=== PATIENT | female | born 1990 | race African-American/Black ===

== ENCOUNTER 2020-12-27 11:12 | Emergency (ER) | payer OTHER, SELFPAY ==
--- NOTE | 2020-12-27 11:17 | ED.CHESTPAIN ---
HPI - Chest Pain General Chief Complaint: Chest Pain Stated Complaint: chest pain/johnson Time Seen by Provider: 12/27/20 11:17 Source: patient and RN notes reviewed History of Present Illness HPI narrative: Patient is a 30-year-old female who presents the urgent care with complaints of chest heaviness and intermittent headaches. Patient states that this started last week and it resolved after she was able to regroup and decrease her stress and anxiety. 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 States that her friend that came with her from [place] is leaving to go to [place] and she feels that she is going to be alone . Patient states that she knows her son's are related to stress and anxiety but she wanted to make sure her . Patient states that she has seen Dr. Serrano and is currently not on any medication for stress or anxiety. Patient is tearful but otherwise no other acute distress noted. Patient denies of any cardiac history. Denies of shortness of breath. No other complaints. No acute distress noted. Patient aware of the plan of care. Some parts of this dictation were generated by voice recognition software and may contain typographical and/or grammatical inaccuracies. Related Data Home Medications Medication Instructions Recorded Confirmed albuterol 12/27/20 Allergies Allergy/AdvReac Type Severity Reaction Status Date / Time No Known Allergies Allergy Verified 12/27/20 11:23 Review of Systems Review of Systems: CONSTITUTIONAL: Denies fever, chills, or sweats. EYES: Denies visual changes, redness, or discharge. ENT: Denies rhinorrhea, congestion, sore throat, or otalgia. CARDIOVASCULAR: Reports of chest discomfort RESPIRATORY: Denies cough or dyspnea. GASTROINTESTINAL: Denies abdominal pain, nausea, vomiting, or diarrhea. GENITOURINARY: Denies dysuria or hematuria. SKIN: Denies rash or itching. MUSCULOSKELETAL: Denies back pain, joint pain, or myalgia. NEUROLOGIC: Reports of intermittent headaches PSYCHIATRIC: Reports of anxiety and stress All other systems reviewed are negative, except as documented in HPI. PMFSH Comments At the time of my signature, I reviewed and agree with the nursing past medical, surgical, social, and family history. There is no relevant family history pertinent to the patient complaint. Exam Narrative: GENERAL: This is a well-nourished, well-developed patient. Tearful HEAD: normocephalic, atraumatic. EYES: PERRL. Sclera clear/white. Vision is grossly intact. EARS: External ears normal NOSE: External nose normal with no obvious nasal discharge, nares without redness, no rhinorrhea. THROAT: Mucous membranes moist NECK: Neck supple CARDIOVASCULAR: Regular rate and rhythm without murmurs, gallops, or rubs. RESPIRATORY: Clear to auscultation. Breath sounds equal bilaterally. No wheezes, rales, or rhonchi. SKIN: warm, intact with no suspicious lesions or rash, good texture and turgor. NEURO: awake, alert, and oriented to person, place and time. There were no obvious focal neurologic abnormalities. EXTREMITIES: No clubbing, cyanosis, or edema. Course Vital Signs Vital signs: Vital Signs Temperature 97.4 F L 12/27/20 11:21 Pulse Rate 79 12/27/20 11:21 Respiratory Rate 20 12/27/20 11:21 Blood Pressure 146/96 H 12/27/20 11:21 Pulse Oximetry 100 12/27/20 11:21 Temperature 97.4 F L 12/27/20 11:21 Pulse Rate 79 12/27/20 11:21 Respiratory Rate 20 12/27/20 11:21 Blood Pressure 146/96 H 12/27/20 11:21 Pulse Oximetry 100 12/27/20 11:21 Reviewed-patient is informed that they may have pre-hypertension or hypertension based on a blood pressure reading in the department. I recommend the patient call the primary care provider listed on their discharge instructions or a physician of their choice this week to arrange follow-up for further evaluation of possible pre-hypertension or hypertension. MDM - Chest Pain MDM Narrati
[2020-12-27 11:21] VITALS: BP 146/96; PULSE 79; RESP 20; TEMP 36.3; O2SAT 100
--- NOTE | 2020-12-27 11:25 | ECG_ITS ---
Measurements Intervals [place] Rate: 71 P: 18 VT: 149 QRS: 37 QRSD: 89 T: 32 QT: 373 QTc: 408 Interpretive Statements SINUS RHYTHM WITH SINUS ARRHYTHMIA BASELINE ARTIFACT- II, III, AVL, AVF NORMAL ECG Electronically Signed On 12-27-2020 12:04:51 CDT by Moses Mix D.O.
== END 2020-12-27 11:56 | disposition home or self-care (01) ==
PROVIDERS: Emergency Provider Nurse Practitioner Family; PCP Emergency Medicine
DX: F41.9 Anxiety disorder, unspecified (principal)
CPT/HCPCS: 93005; 99213; G0463

== ENCOUNTER 2021-07-06 13:09 | Emergency (ER) | payer OTHER, SELFPAY ==
[2021-07-06 13:16] VITALS: BP 147/77; PULSE 98; RESP 20; TEMP 36.4; O2SAT 100
--- NOTE | 2021-07-06 13:35 | ED.URI ---
HPI - URI/Sore Throat General Chief Complaint: Upper Respiratory Infection Stated Complaint: Sore throat, eyes burning Time Seen by Provider: 07/06/21 13:36 Source: patient and RN notes reviewed Mode of arrival: ambulatory Limitations: no limitations History of Present Illness HPI Narrative: 31-year-old female resents with concern for 5-day history of headache, nasal congestion, sinus pressure, sore throat, shortness of breath when she climbs stairs. Reports light-sensitive you have headache. Reports she has been taking DayQuil and allergy medicine without relief. MD elicited complaint: sore throat, nasal congestion and other (Headache) Related Data Home Medications Medication Instructions Recorded Confirmed albuterol mcg INHALATION 07/06/21 Allergies Allergy/AdvReac Type Severity Reaction Status Date / Time No Known Allergies Allergy Verified 07/06/21 13:17 Review of Systems Review of Systems: CONSTITUTIONAL: Reports malaise. Denies chills, sweats, or fever. EYES: Denies visual changes, redness, or discharge. ENT: Reports rhinorrhea, congestion, sinus pain, otalgia and sore throat. CARDIOVASCULAR: Denies chest pain, palpitations, or edema. RESPIRATORY: Reports cough. Reports exertional dyspnea. GASTROINTESTINAL: Denies abdominal pain, nausea, vomiting, diarrhea SKIN: Denies rash or itching. MUSCULOSKELETAL: Denies myalgia. NEUROLOGIC: Reports headache with light sensitivity. All systems reviewed & are unremarkable except as noted in HPI and below PMFSH Comments At time of signature, agree with nursing past medical, surgical, social and family history. There is no relevant family history pertinent to the presenting complaint Exam Narrative: GENERAL: Well-appearing, well-nourished, and in no acute distress. HEAD: Normocephalic EYES: PERRLA, conjunctivae clear ENT: Nares clear, clear discharge. Mucous membranes moist. TM pearly roberto with dull light reflex bilaterally; no tragal tenderness. Oropharynx not erythematous without lesions. Tonsils not enlarged and without exudate, no drooling, no hoarseness, no trismus, uvula midline. NECK: Supple. No lymphadenopathy CHEST: Clear to auscultation, breath sounds equal. No wheezing, rhonchi, rales, or stridor. No respiratory distress, speaks in full sentences. HEART: Regular rate and rhythm. No murmur heard. SKIN: Warm, dry, no rash. NEURO: Alert and oriented x3. PSYCH: Normal mood and affect Course Course Emergency Course: Patient is aware of diagnosis, understands and agrees to treatment plan. Anticipatory guidance given. Patient agrees to follow-up as directed and is aware of reasons to seek care at the emergency department. Portions of this record may have been created with voice recognition software Level of Care: Express Care Visit Vital Signs Vital signs: Vital Signs Temperature 97.6 F 07/06/21 13:16 Pulse Rate 98 07/06/21 13:16 Respiratory Rate 20 07/06/21 13:16 Blood Pressure 147/77 H 07/06/21 13:16 Pulse Oximetry 100 07/06/21 13:16 Temperature 97.6 F 07/06/21 13:16 Pulse Rate 98 07/06/21 13:16 Respiratory Rate 20 07/06/21 13:16 Blood Pressure 147/77 H 07/06/21 13:16 Pulse Oximetry 100 07/06/21 13:16 Reviewed. MDM - URI/Sore Throat MDM Narrative Medical decision making narrative: Differential diagnosis considered: Sanchez virus, strep pharyngitis, allergic rhinitis, upper respiratory tract infection, sinusitis, rhinosinusitis, nasopharyngitis. viral pharyngitis, otitis media, otitis externa, pneumonia, bronchitis, viral cough syndrome, viral syndrome, and influenza. Exam findings show no acute concerns or changes; patient is non-toxic appearing and is in no distress. Patient is appropriate for outpatient treatment and follow-up. Lab Data Attestation: I reviewed the patient's lab results. Critical Care Time Critical Care Time Critical Care Time: No Discharge Plan Discharge Clinical Impression: Sinobronchitis
== END 2021-07-06 14:22 | disposition home or self-care (01) ==
PROVIDERS: Emergency Provider Nurse Practitioner; PCP Emergency Medicine
DX: J32.9 Chronic sinusitis, unspecified (principal); J40 Bronchitis, not specified as acute or chronic; Z20.822 Contact with and (suspected) exposure to COVID-19; J45.909 Unspecified asthma, uncomplicated
CPT/HCPCS: 87081; 87426; 87804; 87880; 99213; C9803; G0463

== ENCOUNTER 2021-10-27 16:04 | Emergency (ER) | payer OTHER, SELFPAY ==
--- NOTE | ~2021-10-27 | CT_ITS ---
EXAMINATION: CT abdomen pelvis w con DATE: 10/27/2021 19:08 INDICATION: Abdominal distention, bloating and intermittent constipation. Upper abdominal pain. TECHNIQUE: Computed tomography (CT) of the abdomen and pelvis was performed with 100 cc Omnipaque 300 intravenous contrast. The dose-length product was 1272.42 mGy-cm. Automated exposure control and ite rative reconstruction technique were employed. COMPARISON: None. FINDINGS: Lung bases unremarkable. Heart size normal. No significant pleural or pericardial effusion. No significant vascular abnormality. No lymphadenopathy. Nonobstructive bowel pattern. No free air o r free fluid. The liver, spleen, pancreas, adrenal glands and kidneys are unremarkable. No hydronephrosis. No abnor mal pelvic masses or fluid collections. No acute osseous abnormality. IMPRESSION: 1. No acute abdominal abnormality. Reviewed, dictated and finalized at location A.
[2021-10-27 16:43] VITALS: BP 136/75; PULSE 88; RESP 18; TEMP 36.6; O2SAT 100
[2021-10-27 16:57] LABS: Basophils Percent Auto 0.6 % (0.2-1.2); Eosinophils Percent Auto 0.4 % (0-4.4); Hematocrit 36.3 % (37.0-47.0); Hemoglobin 11.8 g/dL (12.0-15.0); Immature Granulocyte Absolute 0.02 K/mm3 (0.00-0.031); Immature Granulocyte Percent A 0.3 % (0-0.5); Lymphocytes Absolute Auto 2.27 K/mm3 (0.9-3.2); Lymphocytes Percent Auto 32.1 % (18.3-44.2); Mean Corpuscular HGB Conc 32.5 g/dl (32-36); Mean Corpuscular Hemoglobin 27.9 pg (26-34); Mean Corpuscular Volume 85.8 fl (80-100); Mean Platelet Volume 9.5 fl (7.4-10.4); Monocytes Absolute Auto 0.4 K/mm3 (0.1-0.6); Monocytes Percent Auto 6.1 % (2.6-8.5); Neutrophils Absolute Auto 4.3 K/mm3 (1.3-6.7); Neutrophils Percent Auto 60.5 % (45.5-73.1); Platelet Count Result 391 k/mm3 (150-375); Red Blood Count 4.23 M/mm3 (4.2-5.4); Red Cell Distribution Width 13.9 % (11.5-14.5); White Blood Count 7.1 K/mm3 (4.5-10.0)
[2021-10-27 17:07] LABS: Alanine Aminotransferase 23 U/L (6-35); Alkaline Phosphatase 83 U/L (38-126); Anion Gap 3 mmol/L (8-16); Aspartate Amino Transferase 28 U/L (14-36); Bilirubin,Total 0.2 mg/dL (0.2-1.3); Blood Urea Nitrogen 13 mg/dL (7-17); Calcium 8.9 mg/dL (8.4-10.2); Carbon Dioxide 28 mmol/L (22-30); Chloride 108 mmol/L (98-107); Estimated CRCL calculation 87 ml/min; Estimated Glomerular Filt Rate > 60; Glucose 93 mg/dL (65-110); Lipase 113 U/L (23-300); Potassium 3.9 mmol/L (3.4-5.0); Sodium 139 mmol/L (137-145)
[2021-10-27 17:11] LABS: Appearance Urine Clear (Clear); Bilirubin Urine Negative (Negative); Blood Urine Negative (Negative); Color Urine Yellow (Yellow); Glucose Urine UA Negative (Negative); Ketones Urine Negative (Negative); Leukocyte Esterase Ur Negative LEU/UL (Negative); Nitrate Urine Negative (Negative); Protein Urine Negative (Negative); Specific Grav Ur 1.015 (1.001-1.035); Urobilinogen Urine 0.2 mg/dL (<2.0); pH Urine 8.5 (5.0-9.0)
[2021-10-27 17:17] LABS: Add Urine Microscopic? NO
--- NOTE | 2021-10-27 17:46 | ED.GENADULT ---
HPI - General Adult General Chief complaint: Unspecified <TARYN Bhatia Last Filed: 10/28/21 02:25> Stated complaint: abd pain <TARYN Bhatia Last Filed: 10/28/21 02:25> Time Seen by Provider: 10/27/21 17:38 <TARYN Bhatia Last Filed: 10/28/21 02:25> History of Present Illness HPI narrative: Patient is a 31-year-old female here for evaluation of bloating over the past 8 days. Patient states that whenever she eats a meal, she feels incredibly bloated and uncomfortably full afterwards. This came on after she ate a salad 8 days ago, and is present after every meal. Has only been drinking broths and liquids x 2 days without relief. Additionally has tried Maalox without relief. Notes intermittent constipation over the past 8 days, she took magnesium citrate this morning and has had diarrhea ever since. No nausea or vomiting, fevers, dysuria, hematuria, urgency or frequency. She has had no abdominal surgeries. <TARYN Bhatia Last Filed: 10/28/21 02:25> Related Data Home medications: Home Medications Medication Instructions Recorded Confirmed albuterol 90 mcg/actuation aerosol 90 mcg inhalation PRN PRN Wheezing 07/06/21 07/06/21 inhaler <TARYN Bhatia Last Filed: 10/28/21 02:25> Allergies/adverse reactions: Allergies Allergy/AdvReac Type Severity Reaction Status Date / Time No Known Allergies Allergy Verified 10/27/21 17:11 <TARYN Bhatia Last Filed: 10/28/21 02:25> Review of Systems Review of Systems: Gen.: Denies fevers or chills Eyes: Denies eye pain or visual change ENT: Denies congestion Respiratory: Denies shortness of breath or cough CV: Denies chest pain or palpitations GI: Reports abdominal pain and bloating. : denies burning, urgency, frequency or hematuria Musculoskeletal: Denies back pain or muscle pain Neuro: Denies numbness, tingling, weakness or focal weakness Skin: Denies rash Except as documented, all other systems reviewed and negative <Jadyn Todd PA-C - Last Filed: 10/28/21 02:25> Exam Narrative: APPEARANCE: Well appearing, no pain in distress, well-nourished. Head: Normocephalic and atraumatic. EYES: PERRLA/EOMI, conjunctivae clear NOSE: No nasal drainage EARS: External ear normal in appearance THROAT: Oropharynx is clear. Mucous membranes are moist. NECK: Supple. No adenopathy, no masses. RESPIRATORY: Airway patent, respirations nonlabored. Clear to auscultation bilaterally, no rales, rhonchi, wheezing. CARDIOVASCULAR: Regular rate and rhythm without murmurs, rubs, or gallops. : No fecal impaction, good rectal tone. ABDOMINAL: Abdomen mildly distended, tender in epigastrium. No rebound tenderness or guarding. MUSCULOSKELETAL: Extremities are warm and well-perfused. Moves all extremities well. No edema. NEURO: Normal speech. No focal neurologic deficits. SKIN: Skin is warm and dry. No rashes. PSYCHIATRIC: Normal affect/mood. <Jadyn Todd PA-C - Last Filed: 10/28/21 02:25> Course [employer]PA[employer]/PA Physician Supervision I saw and evaluated the patient. Discussed the patient and plan with XAVI Todd and agree with the findings and plan as documented. <Willian Rdz MD - Last Filed: 10/28/21 23:56> Vital Signs Vital signs: Vital Signs Temperature 97.8 F 10/27/21 16:43 Pulse Rate 88 10/27/21 16:43 Respiratory Rate 18 10/27/21 16:43 Blood Pressure 136/75 10/27/21 16:43 Pulse Oximetry 100 10/27/21 16:43 Temperature 97.8 F 10/27/21 16:43 Pulse Rate 87 10/27/21 20:08 Respiratory Rate 18 10/27/21 20:08 Blood Pressure 136/75 10/27/21 16:43 Pulse Oximetry 98 10/27/21 20:08 <Jadyn Todd PA-C - Last Filed: 10/28/21 02:25> Vital Signs Temperature 97.8 F 10/27/21 16:43 Pulse Rate 88 10/27/21 16:43 Respiratory Rate 18 10/27/21 16:43 Blood Pressure 136/75
[2021-10-27 20:08] VITALS: PULSE 87; RESP 18; O2SAT 98
== END 2021-10-27 20:00 | disposition home or self-care (01) ==
PROVIDERS: Emergency Medicine; Emergency Provider Preventive Medicine Aerospace Medicine; PCP Emergency Medicine
DX: R14.0 Abdominal distension (gaseous) (principal)
CPT/HCPCS: 36415; 74177; 80053; 81003; 81025; 83690; 85025; 99284; Q9967

== ENCOUNTER 2021-11-16 07:34 | Outpatient (CLI) | payer OTHER, SELFPAY ==
--- NOTE | ~2021-11-16 | XR_ITS ---
EXAMINATION: XR UGIAC wo kub DATE: 11/16/2021 08:30 INDICATION: Abdominal pain and bloating. TECHNIQUE: The patient drank thick barium, gas-producing crystals, and thin barium. Fluoroscopy of th e esophagus, stomach, and proximal small bowel was performed. Fluoroscopy exposure time was 0.7 minut es. The total number of images was 265. Total dose-area product was 3.853 Gy-cm^2. COMPARISON: CT abdomen and pelvis 10/27/21 FINDINGS: There is no mass or stricture of the esophagus. Esophageal motility is normal. There is no hiatal hernia. The stomach and proximal small bowel show normal folding patterns. IMPRESSION: 1. Normal upper gastrointestinal series. Reviewed, dictated and finalized at location A.
--- NOTE | ~2021-11-16 | US_ITS ---
US abdomen limited INDICATION: Abdomen pain PROCEDURE: Realtime right upper abdominal ultrasound. COMPARISON: No prior studies for comparison. FINDINGS: The pancreas is normal without focal mass or pancreatic ductal dilation. Liver echotexture is slightly increased, consistent with fatty infiltration. There is normal directional flow in the portal vein. The gallbladder is normal without stones, gallbladder wall thickening or pericholecystic fluid. Comm on bile duct measures 5 mm. No sonographic Montez's sign. IMPRESSION: 1: Hepatic steatosis. Reviewed, dictated and finalized at location A. IMPRESSION: 1: Hepatic steatosis.
== END 2021-11-16 07:35 | disposition home or self-care (01) ==
PROVIDERS: PCP Emergency Medicine; Visit Provider Emergency Medicine
DX: R14.0 Abdominal distension (gaseous) (principal); R10.9 Unspecified abdominal pain; K76.0 Fatty (change of) liver, not elsewhere classified
CPT/HCPCS: 74246; 76705

== ENCOUNTER 2022-05-29 15:06 | Emergency (ER) | payer OTHER, SELFPAY ==
[2022-05-29 15:16] VITALS: BP 152/83; PULSE 76; RESP 16; TEMP 36.8; O2SAT 100
[2022-05-29 15:18] VITALS: BP 152/83; PULSE 76; RESP 16; TEMP 36.8; O2SAT 100
[2022-05-29] MEDS: methylPREDNISolone SOD SUCC 125 MG VIAL IM (15:38)
[2022-05-29] MEDS: FAMOTIDINE 20 MG TABLET PO (15:58)
--- NOTE | 2022-05-29 15:59 | ED.GENADULT ---
HPI - General Adult General Chief complaint: Allergic Reaction Stated complaint: ALLERGIC REACTION Source: patient Mode of arrival: ambulatory Limitations: no limitations History of Present Illness HPI narrative: Patient presents for evaluation of which she believes to be an allergic reaction. She had a case she wanted [employer] last night and had dinner. She woke from sleep around 0500 this morning with some nausea. Around 1100 this morning she took some baking soda for her symptoms. Approximately half an hour later she ate some salmon and vegetables. Around 1300 she developed pruritus that started in her hands and then migrated to most of the rest of her body. She developed some swelling to her eyelids and lips. She took some Benadryl and states that her symptoms are improving. She denies any difficulty breathing or swelling. No history of similar symptoms in the past. She is not on an LEATHA-inhibitor. Related Data Allergies Allergy/AdvReac Type Severity Reaction Status Date / Time No Known Allergies Allergy Verified 05/29/22 15:17 Review of Systems Review of Systems: CONSTITUTIONAL: Denies fever, chills, or sweats. EYES: Reports swelling to the eyelids. Denies visual changes, redness, or discharge. ENT: Reports lip swelling. Denies rhinorrhea, congestion, sore throat, or otalgia. CARDIOVASCULAR: Denies chest pain, palpitations, or edema. RESPIRATORY: Denies cough or dyspnea. GASTROINTESTINAL: Denies abdominal pain, nausea, vomiting, or diarrhea. GENITOURINARY: Denies dysuria or hematuria. SKIN: Reports pruritis MUSCULOSKELETAL: Denies back pain, joint pain, or myalgia. NEUROLOGIC: Denies headache, numbness, dizziness, or weakness. PSYCHIATRIC: Denies anxiety or depression. 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 HEAD: Normocephalic, atraumatic. EYES: There is trace swelling noted to lower eyelids bilaterally. Pupils are equal, round, reactive to light, and accommodation and EOMI. ENT: Nares clear, no rhinorrhea or epistaxis. Mucous membranes moist. there is swelling noted to upper and lower lips without posterior pharyngeal swelling. Oropharynx without tonsillar hypertrophy exudate or other lesions. Bilateral TMs pearly roberto nonbulging NECK: Supple. No adenopathy or masses. No carotid bruits or JVD CHEST: Clear to auscultation. No respiratory distress. No wheezes rales or rhonchi HEART: Regular rate and rhythm. No murmur heard. Normal peripheral pulses. ABDOMEN: Soft, nontender, nondistended, normal active bowel sounds. EXTREMITIES: Normal range of motion. No edema. SKIN: Warm, dry, no rash. NEURO: No focal deficits. Alert and oriented x3. PSYCH: Normal mood and affect. Course Course Emergency Course: This is a 32-year-old female who presented for evaluation of an allergic reaction. She was given Solu-Medrol and Pepcid while here. Her airway remained patent. She states her symptoms improved following administration of medications. Will discharge with prednisone and Pepcid. Will follow up with primary provider. Go to the ER for difficulty breathing or swelling. Patient in agreement with plan of c
== END 2022-05-29 16:13 | disposition home or self-care (01) ==
PROVIDERS: Emergency Provider Nurse Practitioner; PCP Emergency Medicine
DX: H02.846 Edema of left eye, unspecified eyelid (principal); H02.843 Edema of right eye, unspecified eyelid; R22.0 Localized swelling, mass and lump, head; L29.9 Pruritus, unspecified; T78.40XA Allergy, unspecified, initial encounter; J45.909 Unspecified asthma, uncomplicated
CPT/HCPCS: 81025; 96372; 99213; A9270; G0463; J2930

== ENCOUNTER 2024-11-08 16:10 | Emergency (ER) | payer OTHER, SELFPAY ==
--- NOTE | 2024-11-08 16:12 | ED_ITS ---
HPI - Skin/Abscess/Foreign Bdy General Chief complaint: Skin/Abscess/Foreign Body Stated complaint: Skin Irritation Time Seen by Provider: 11/08/24 16:11 Source: patient Mode of arrival: ambulatory Limitations: no limitations History of Present Illness HPI narrative: Silvana is a 34 year old female patient presenting to the clinic today with c/o skin rash x 3 days. She reports she had been using a new laundry detergent and feels as though it detergent is causing her skin to be itchy. Has a few bumps on each arm that is raised and itchy. Has been applying Mckee oil to the and that has been dry in the mouth. States that new bumps have developed over the last 1-2 days. Denies any other environmental changes. Also concerned that she may be dairy intolerant as this causes bloating. Would like to follow-up with children's service worker. Related Data Home Medications ?Medication ?Instructions ?Recorded ?Confirmed ?Last Taken ?Type albuterol sulfate 90 mcg/actuation 1 inh inhalation Q4H 08/13/22 11/08/24 Unknown History aerosol inhaler (ProAir HFA) tirzepatide (weight loss) 11/08/24 Unknown History Allergies Allergy/AdvReac Type Severity Reaction Status Date / Time No Known Allergies Allergy Verified 11/08/24 16:22 Review of Systems Review of Systems: Pertinent positives per HPI. Patient denies any fever, chills, headache, visual changes, dizziness, cough, runny nose, sore throat, shortness of breath, chest p ain, palpitations, nausea, vomiting, diarrhea, constipation, abdominal pain, or any urinary issues. 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 There is no relevant family history pertinent to the patient complaint. Exam Narrative: General: Well-developed, well nourished, in no apparent distress Head: Normocephalic, atraumatic. Cardio: Regular rate and rhythm, s1 and s2 normal, no murmur appreciated. Resp: Clear to auscultation bilaterally, no rhonchi, rales, wheezing or rubs. Integumentary: [place], warm, and dry, intact without lesion, red, raised, papular itchy rash to bilateral arms Course Course Emergency Course: Portions of this record may have been created with voice recognition software. Level of Care: Express Care Visit Vital Signs Vital signs: Vital signs reviewed MDM - Skin/Abscess/Foreign Bdy MDM Narrative Medical decision making narrative: At the time of visit patient is resting comfortably on the exam table. Patient appears to be nontoxic. c/o skin rash x 3 days. She reports she had been using a new laundry detergent and feels as though it detergent is causing her skin to be itchy. Has a few bumps on each arm that is raised and itchy. Has been applying Mckee oil to the and that has been dry in the mouth. States that new bumps have developed over the last 1-2 days. Also concerned that she may be dairy intolerant as this causes bloating. Would like to follow-up with children's service worker. Plan: I suspect patient has dermatitis likely due to new laundry detergent. Prescription for triamcinolone cream was sent to the pharmacy. Dr. Head- children's service worker information was shared with the patient. Patient can call and schedule appointment. Supportive measures were discussed with the patient and they voiced understanding discharge instructions and agrees to treatment plan. Return precautions reviewed Differential Diagnosis Differential diagnosis: Likely abscess of skin or subcutaneous tissue, viral exanthem, dermatophytosis, urticaria, herpes zoster, allergic reaction to drug, cellulitis, eczema, insect bites, impetigo and contact dermatitis Discharge Plan Discharge Clinical Impression: Dermatitis Patient Disposition: Home Condition: Stable Instructions: Antibiotic Form, Dermatitis (ED) Additional Instructions: Apply triamcinolone cream to the affected areas twice daily as directed Avoid using irritating laundry detergent-go back to the old detergent that your using prior to your symptoms Avoid hot showers Moisturize her skin twice daily using Aquaphor, Lubriderm, or Cetaphil lotion Avoid dairy products if you feel that this causes bloating and discomfort Follow-up with an children's service worker Avoid scratching as this can cause a secondary infection May take Benadryl 25-50mg every 6 hours as needed for itching. Follow up with your PCP in 3-5 days if symptoms persist or sooner if they worsen Go to the Emergency Room if symptoms worsen- fever, rash spreading with treatment, shortness of breath, tongue swelling, drooling, or chest pain Patient Language: French Prescriptions: New triamcinolone acetonide 0.1 % cream 1 applic topical BID 7 Days Qty: 30 0RF No Action tirzepatide (weight loss) albuterol sulfate [ProAir HFA] 90 mcg/actuation HFA aerosol inhaler 1 inh inhalation Q4H Follow-up/Referrals: UNKNOWN,DOCTOR [Non-Staff] - Dung Head MD [Physician] - 1 Day (Concern for skin allergies and being dairy intolerant) Time of Disposition: 16:28 Quality NIHSS Nursing Documentation ED NIHSS nursing documentation: reviewed/agree
[2024-11-08 16:23] VITALS: BP 133/83; PULSE 79; RESP 16; TEMP 36.3; O2SAT 100
== END 2024-11-08 16:36 | disposition home or self-care (01) ==
PROVIDERS: Emergency Provider Nurse Practitioner Family; PCP Emergency Medicine
DX: L30.9 Dermatitis, unspecified (principal); J45.909 Unspecified asthma, uncomplicated
CPT/HCPCS: 99213; G0463

== ENCOUNTER 2024-12-25 09:57 | Outpatient (CLI) | payer OTHER, SELFPAY ==
--- OUTSIDE RECORDS SUMMARY | 2024-06-30 04:58 | XMS_ITS | Continuity of Care Document ---
Author Organization [facility] Address [address] [place] [address] Phone Care Team Providers Care Polysomnography Technician Name Role Phone Lonny Serrano MD Unavailable Unavailable Allergies, Adverse Reactions, Alerts Substance Reaction Status Criticality No Known Allergies Active No Inform ation Medications Medication Instructions Dosage Effective Dates (start - stop) Status Comments phentermine 37.5 mg tablet take 1 tablet by oral route every day before breakfast 37.5 MG - Active albuterol sulfate HFA 90 mcg/actuation aerosol inhaler inhale 1 puff by inhalation route every 4 - 6 hours as needed as needed 1 puff - Active PRN for sob Procedures Procedure Date OFFICE/OUTPATIENT VISIT, EST PREV VISIT, EST, AGE 18-39 OFFICE/OUTPATIENT VISIT, EST OFFICE/OUTPATIENT VISIT, EST OFFICE/OUTPATIENT VISIT, EST PREV VISIT, EST, AGE 18-39 OFFICE/OUTPATIENT VISIT, EST PREV VISIT, EST, AGE 18-39 OFFICE/OUTPATIENT VISIT, EST PREV VISIT, NEW, AGE 18-39 OFFICE/OUTPATIENT VISIT, NEW Advance Directives Directive Yes / No Effective Date File Name No Information Encounters Encounter Description Practice Location Reason(s) For Visit Diagnoses Date Provider Providers Copied on Encounter OFFICE/OUTPA TIENT VISIT, EST [facility], [address] [place] [address], [id number], [place] tel:[phone] [facility] Medicine glucose1 (chief complaint) iron1 (chief complaint) weight gain1 (chief complaint) fatigue1 (chief complaint) Abnormal weight gainHyperglycemiaIr on deficiencyFatigue 5 Zach Sharif [address], [place], [place], [id number] , [place]. tel:[phone] PREV VISIT, EST, AGE 18-39 [facility], [address], [place], [place], [id number], [place] tel:[phone] [facility] Medicine physical (chief complaint) Encounter for general adult medical exam w abnormal findingsIron deficiencyMild intermittent asthma, uncomplicatedAbnorm al weight gainFatigueHypergly cemia 5 Zach Sharif [address], [place], [place], [id number] , [place]. tel:[phone] OFFICE/OUTPA TIENT VISIT, EST [facility], [address], [place], [place], [id number], [place] [phone] [facility] back pain1 (chief complaint) Muscle spasm of back 3 Zach Sharif [address], [place], [place], [id number] , [place]. tel:[phone] OFFICE/OUTPA TIENT VISIT, EST [facility], [address], [place], [place], [id number], [place] tel:[phone] [facility] Medicine TB (chief complaint) Acute bronchitis 3 Zach Sharif [address], [place], [place], [id number] , [place]. tel:[phone] PREV VISIT, EST, AGE 18-39 [facility], [address], [place], [place], [id number], [place] [phone] [facility] Medicine physical (chief complaint) Encounter for general adult medical examination without abnormal findings 3 Zach Sharif [address], [place], [place], [id number] , [place]. tel:[phone] OFFICE/OUTPA TIENT VISIT, EST [facility], [address], [place], [place], [id number], [place] tel:[phone] [facility] Medicine GERD1 (chief complaint) fatty lliver1 (chief complaint) H pylori1 (chief complaint) anemia1 (chief complaint) Fatty liverH. pylori as the cause of diseases classified elsewhereIron deficiencyAllergy to other foods 2 Zach Mukherjee. [address], [place], [place], [id number] , [place]. [phone] PREV VISIT, EST, AGE 18-39 [facility], [address], [place], [place], [id number], [place] tel:[phone] [facility] Medicine abd bloating1 (chief complaint) GERD w/o esophagitisBloating AnemiaOther thrombocytosisEncou nter for general adult medical exam w abnormal findings 2 Zach Mukherjee. [address], [place], [place], [id number] , [place]. [phone] PREV VISIT, NEW, AGE 18-39 [facility], [address], [place], [place], [id number], [place] tel:[phone] [facility] Medicine physical (chief complaint) Encounter for general adult medical exam w abnormal findingsUrinary tract infectionHyperlipid emiaAsthma 1 Zach Mukherjee. [address], [place], [place], [id number] , [place]. [phone] Family History Family Member Type Diagnosis Age At Onset Mother Problem Alive and well Brother Problem Alive and well Father Problem Alive and well Payers Payer name Insurance type Covered alliance party ID Brigidoa candice(s) [employer] [id number] Social History Type Description Quantity Date Captured Comments Alcohol Use Details beer & wine Caffeine Use Details Unknown Tobacco Use Status Current non-smoker Smoking Status Never smoker Sex Female Vital Signs Date / Time: Height Weight BMI Pulse Rate Blood Pressure Temperature Respiratory Rate Body Surface Area Head Circumference BMI percentile Pulse Ox Inhaled Ox 10:03 AM 64.00 in 267.60 lbs 45.9 3 kg/m eter (2) 80 /min 120/70 mm[Hg] 98.0 F 16 /min Chief Complaint And Reason For Visit From encounter dated '06/30/2024 09:58'. glucose1 (chief complaint). Description: Pt has history of mildly high a1c and repeat lab is ok. Her A1c is normal. iron1 (chief complaint). Description: Pt has mildly low iron saturation Pt denies any blood loss Pthas period regularly. weight gain1 (chief complaint). Description: Pt is obese Pt wants to try weight loss meds. fatigue1 (chief complaint). Description: Pt has mild chronic fatigue. Pt denies any snoring Plan Of Treatment Date Type Action Status Referral Ordered: CHEST X-RAY PA/LAT TWO-VIEWS ordered Referral Ordered: UPPER GI W/ KUB ordered History Of Present Illness Encounter Date Complaint History Of Prese nt Illness glucose1 Pt has history o f mildly high a1c and repeat lab is ok. Her A1c is normal. iron1 Pt has mildly lo w iron saturation Pt denies any blood loss Pt has period regularly. weight gain1 Pt is obese Pt w ants to try weight loss meds. 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 Pt denies any snoring physical Pt needs annual physical Pt recently had lab done which showed high A1c but she is not sure what the A1c number was and she was told that she is pre diabetic. Pt also has been gaining weight. Pt has history of low iron .Pt feels fatigue. 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. Pt feels tired and she can not lose weight. Pt has asthma and she uses albuterol very rarely, especially during spring allergy season. 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 Pt states that flexeril did help. Pt states that she returned to work left saturday with lifting patient and the pain returned. TB Pt has history o f BCG vaccination and she needs to get TB test done. Pt had quantiferon test done several weeks ago but result is not available due to poor sample handling Pt denies any cough or night cough, weight loss, recent travel, night sweat, etc. Pt needs chest x ray done physical Pt needs annual physical. Pt is applying for mortgage and she needs medical examination for approval. Pt overall doing ok. Pt no longer has any GERD Pt has very mild asthma and she rarely feels sob or needs to use albuterol. 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 pt notices mild left lower back pain after returning home from [employer]. Pt denies ay sciatica. Pt denies any loss of bowel or bladder control or saddle area paresthesia Pt denies any neuropathy symptoms pt notices mild dull muscle ache left lower back area, especially with movement Pt misty any resting pain or night time pain. GERD1 Pt has some abdo shaina bloating and mild gerd Pt denies any abd pain Pt denies any constipation or diarrhea. pt states that her symptoms resolved with omeprazole. Pt had normal upper Gi study. Pt has mild food allergy without celiac disease fatty lliver1 Pt has fatty zacarias er on ultrasound. Pt denies any abd pain or jaundice. H pylori1 Pt has positive H pylori. anemia1 Pt is not anemic . pt has borderline low iron saturation .Pt stanley have heavy period. Pt denies any blood in stool abd bloating1 Pt c/o acute ons et of abdominal bloating all the time, worse with food, like peas, etc since 8 days ago. Pt denies any nausea, vomiting, diarrhea. Pt c/o acute constipation as well for the past 10 days. Pt took mag citrate and she noticed some liquid stool afterward without blood. Pt denies any postprandial abd pain. pt denies any blood in stool. Pt went to Er and had negative CT scan and lab showed mild anemia. Pt notices mild burning around throat area after food. Pt does have heavy period. Pt has slightly high platelet. Pt was started on omeprazole from ER since last Saturday. Pt currently feels ok. Pt has been under a lot of stress at work and she has been working at manager shift recently physical Pt needs annual physical. Pt has asthma, which is very well controlled. Pt only albuterol once or twice every 3 months or so. 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 Pt denies any mild low pelvic pressure .Pt denies any flank pain, pt denies any fever, chill. Pt did receive macrobid 10 days ago at urgent care in [place] and she did not think the macrobid helped at all. Pt told me her initial urine drip showed some blood but she was on her period and she did not hear anything about culture. Pt was told if culture normal, she will not be called. Pt denies any other complaints. pt has history of mild HLP Instructions Date Instruction Additional Infor jackson No Information Assessments Type Assessment Date assessment Abnormal weight gain assessment Hyperglycemia assessment Iron deficiency assessment Fatigue Mental Status Date Cognitive Assessment Orientation - [place] ed to time, place, person, situation.
--- NOTE | ~2024-12-25 | MM_ITS ---
EXAMINATION: screening [facility] BI w lou INDICATION: Asymptomatic, referred for screening mammogram COMPARISON: Baseline TECHNIQUE: Digital Breast Tomosynthesis CC, MLO views of Both breasts were obtained with computer-aided detection to assist in interpretation of the study. FINDINGS: There are scattered areas of fibroglandular density. There is an asymmetry seen on the MLO view in the Inferior left breast at posterior third. In addition, there is a focal asymmetry in the superior lateral left breast at posterior third. Elsewhere, there are no mammographic features of malignancy. IMPRESSION: 1. Left breast asymmetries. 2. No evidence of malignancy in the Right breast. RECOMMENDATION: Left breast Diagnostic mammogram with true lateral, appropriate spot compression views and an ultrasound if needed. BI-RADS Category 0: Incomplete: Needs additional imaging evaluation. Reviewed, dictated and finalized at location B. IMPRESSION: 1. Left breast asymmetries. 2. No evidence of malignancy in the Right breast. RECOMMENDATION: Left breast Diagnostic mammogram with true lateral, appropriate spot compressio n views and an ultrasound if needed. BI-RADS Category 0: Incomplete: Needs additional imaging evaluation.
== END 2024-12-25 09:58 | disposition home or self-care (01) ==
LOC: ANHFOHIMG 10:01
PROVIDERS: PCP Emergency Medicine; Visit Provider Student in an Organized Health Care Education/Training Program
DX: Z12.31 Encounter for screening mammogram for malignant neoplasm of breast (principal); R92.8 Other abnormal and inconclusive findings on diagnostic imaging of breast
CPT/HCPCS: 77063; 77067

== ENCOUNTER 2025-02-19 13:33 | Outpatient (CLI) | payer OTHER, SELFPAY ==
--- NOTE | ~2025-02-19 | MMUS_ITS ---
EXAMINATION: MM diagnostic chris LT w lou, US breast LT limited INDICATION: 35-year old female; BI-RADS 0, callback to evaluate Left breast asymmetries COMPARISON: 12/25/2024 TECHNIQUE: Digital breast tomosynthesis True lateral and spot compression CC and MLO views of the LEFT breast were obtained with computer-aided detection to assist in interpretation of the study. FINDINGS: There are scattered areas of fibroglandular density. The focal asymmetry of concern in the superior-lateral at posterior third in the left breast effaces on spot compression views compatible with superimposition of fibroglandular tissue. The asymmetries seen at posterior depth in the inferior left breast persisted as a circumscribed mass. LEFT BREAST ULTRASOUND FINDINGS: Targeted evaluation of the area of concern was completed. There is no sonographic correlate to the persistent mass seen on the mammogram. An incidental 0.3 cm cyst seen at 12:00 4 cm from the nipple. IMPRESSION: Probable Benign LEFT breast mass with no sonographic correlate. Short-term follow-up recommended. Focal asymmetry in the superior lateral left breast represents superimposition of fibroglandular tissue. RECOMMENDATION: 3 month follow-up diagnostic LEFT mammogram. BI-RADS 3, PROBABLY BENIGN Reviewed, dictated and finalized at location B. NE BOSS IMPRESSION: Probable Benign LEFT breast mass with no sonographic correlate. Short-term foll ow-up recommended. Focal asymmetry in the superior lateral left breast represents superimposition of fibroglandular tissue. RECOMMENDATION: 3 month follow-up diagnostic LEFT mammogram. BI-RADS 3, PROBABLY BENIGN
== END 2025-02-19 13:34 | disposition home or self-care (01) ==
LOC: ANHFOHIMG 13:34
PROVIDERS: PCP Emergency Medicine; Visit Provider Student in an Organized Health Care Education/Training Program
DX: R92.8 Other abnormal and inconclusive findings on diagnostic imaging of breast (principal)
CPT/HCPCS: 76642; 77061; 77065; G0279